=== PATIENT | female | born 1990 | race Caucasian/White ===

== ENCOUNTER 2018-11-06 00:18 | Inpatient (IN) | payer OTHER ==
[2018-11-06] MEDS ORDERED: Terbutaline 1 MG/ML SDV SUBCUT PRN (00:24)
[2018-11-06] MEDS ORDERED: Carboprost Tromethamine 250 MCG/1 ML Amp IM PRN (00:26)
[2018-11-06] MEDS ORDERED: Tranexamic Acid 1,000 MG in Sodium Chloride 0.9% 100 ML IV PRN (00:26)
[2018-11-06] MEDS ORDERED: Lidocaine 1% 50 ML MDV INJECT PRN (00:26)
[2018-11-06] MEDS ORDERED: Butorphanol 1 MG/ML SDV IVPUSH PRN (00:26)
[2018-11-06] MEDS ORDERED: Ondansetron 4 MG/2 ML SDV IV PRN (00:26)
[2018-11-06] MEDS ORDERED: Sodium Chloride 0.9% 2.5 ML Syringe FLUSH PRN (00:26)
[2018-11-06] MEDS ORDERED: Methylergonovine 0.2 MG/1 ML Amp IM PRN (00:26)
[2018-11-06] MEDS ORDERED: Misoprostol 200 MCG Tab PO PRN (00:26)
[2018-11-06] MEDS ORDERED: Sodium Chloride 0.9% 10 ML Syringe FLUSH PRN (00:26)
[2018-11-06] MEDS ORDERED: Nalbuphine 10 MG/1 ML Vial IVPUSH PRN (00:26)
[2018-11-06] MEDS ORDERED: Water For Irrigation,Sterile 1,000 ML Container IRR PRN (00:26)
[2018-11-06] MEDS ORDERED: Sodium Chloride 0.9% 10 ML SDV IV PRN (00:26)
[2018-11-06] MEDS ORDERED: Oxytocin/0.9 % Sodium Chloride 30 UNIT/500 ML BAG IV SCH ×2 (00:30)
[2018-11-06] MEDS: Lactated Ringers 1,000 ML IV SCH ×2 (01:16→06:46)
--- NOTE | 2018-11-06 07:01 | PCM.PREANE ---
Preanesthetic Assessment - Anesthesia/Transfusion/Family Hx Anesthesia History: No Prior Anesthesia Family History of Anesthesia Reaction: No Transfusion History: No Prior Transfusion(s) - Review of Systems General: No Symptoms Pulmonary: No Symptoms Cardiovascular: No Symptoms Gastrointestinal: No Symptoms Neurological: No Symptoms Other: Reports: None - Physical Assessment Height: 5 ft Weight: 90.265 kg ASA Class: 2 Mental Status: Alert & Oriented x3 Airway Class: Mallampati = 2 Dentition: Reports: Normal Dentition Thyro-Mental Finger Breadths: 3 Mouth Opening Finger Breadths: 3 ROM/Head Extension: Full Lungs: Clear to Auscultation, Normal Respiratory Effort Cardiovascular: Regular Rate, Regular Rhythm - Lab Values: Laboratory Last Values WBC 14.75 K/uL (4.0-11.0) H 11/06/18 00:46 RBC 4.65 M/uL (4.30-5.90) 11/06/18 00:46 Hgb 13.1 g/dL (12.0-16.0) 11/06/18 00:46 Hct 38.2 % (36.0-46.0) 11/06/18 00:46 MCV 82.2 fL (80.0-98.0) 05 00:46 MCH 28.2 pg (27.0-32.0) 11/06/18 00:46 MCHC 34.3 g/dL (31.0-37.0) 11/06/18 00:46 RDW Std Deviation 40.8 fl (28.0-62.0) 11/06/18 00:46 RDW Coeff of Jenn 14 % (11.0-15.0) 11/06/18 00:46 Plt Count 207 K/uL (150-400) 11/06/18 00:46 MPV 10.10 fL (7.40-12.00) 11/06/18 00:46 Blood Type O POSITIVE 11/06/18 00:46 Antibody Screen NEGATIVE 11/06/18 00:46 - Allergies Allergies/Adverse Reactions: Allergies Allergy/AdvReac Type Severity Reaction Status Date / Time No Known Allergies Allergy Verified 11/06/18 00:29 - Acknowledgements Anesthesia Type Planned: Epidural Pt an Appropriate Candidate for the Planned Anesthesia: Yes Alternatives and Risks of Anesthesia Discussed w Pt/Guardian: Yes Pt/Guardian Understands and Agrees with Anesthesia Plan: Yes PreAnesthesia Questionnaire HEENT History: Reports: None Cardiovascular History: Reports: None Respiratory History: Reports: None Gastrointestinal History: Reports: GERD Genitourinary History: Reports: None HYDRAULIC MINER History: Reports: Polycystic Ovaries, : 3 Para: 2 LMP (Approximate): Musculoskeletal History: Reports: None Neurological History: Reports: None Psychiatric History: Reports: None Endocrine/Metabolic History: Reports: Obesity/BMI 30+ Hematologic History: Reports: None Immunologic History: Reports: None Oncologic (Cancer) History: Reports: None Dermatologic History: Reports: None - Past Surgical History HEENT Surgical History: Reports: Oral Surgery, Other (See Below) - SUBSTANCE USE Smoking Status *Q: Never Smoker Second Hand Smoke Exposure: No Recreational Drug Use History: No - CURRENT (IN HOUSE) MEDS Current Meds: Current Medications Butorphanol Tartrate (Stadol) 1 mg IVPUSH Q1H PRN PRN Reason: Pain Carboprost Tromethamine (Hemabate Ds) 250 mcg IM ASDIRECTED PRN PRN Reason: Post Hemorrhage Lactated Ringer's (Ringers, Lactated) 1,000 mls @ 150 mls/hr IV ASDIRECTED SETH Last Admin: 11/06/18 06:46 Dose: 999 mls/hr Oxytocin/Sodium Chloride (Oxytocin 30 Unit/500 Ml-Ns) 30 unit in 500 mls @ 2 mls/hr IV TITRATE SETH; Protocol Last Admin: 11/06/18 01:17 Dose: 2 munits/min, 2 mls/hr Oxytocin/Sodium Chloride (Oxytocin 30 Unit/500 Ml-Ns) 30 unit in 500 mls @ 999 mls/hr IV TITRATE SETH Tranexamic Acid 1,000 mg/ (Sodium Chloride) 110 mls @ 660 mls/hr IV ONETIME PRN PRN Reason: Bleeding Lidocaine HCl (Xylocaine 1%) 50 ml INJECT ONETIME PRN PRN Reason: Laceration repair Methylergonovine Maleate (Methergine) 0.2 mg IM ASDIRECTED PRN PRN Reason: Post Hemorrhage Misoprostol (Cytotec) 200 mcg PO ONETIME PRN PRN Reason: Post Hemorrhage Nalbuphine HCl (Nubain) 10 mg IVPUSH Q1H PRN PRN Reason: Pain (severe 7-10) Ondansetron HCl (Zofran) 4 mg IV Q6H PRN PRN Reason: Nausea/Vomiting Sodium Chloride (Saline Flush) 10 ml FLUSH ASDIRECTED PRN PRN Reason: Keep Vein Open Sodium Chloride (Saline Flush) 2.5 ml FLUSH ASDIRECTED PRN PRN Reason: Keep Vein Open Sodium Chloride (Normal Saline) 10 ml IV ASDIRECTED PRN PRN Reason: IV Use Sterile Water (Sterile Water For Irrigation) 1,000 ml IRR ASDIRECTED PRN PRN Reason: delivery Terbutaline Sulfate (Brethine) 0.25 mg SUBCUT ASDIRECTED PRN PRN Reason: Tacysystole
[2018-11-06] MEDS ORDERED: Ibuprofen 400 MG Tab PO PRN (08:51)
[2018-11-06] MEDS ORDERED: Docusate Sodium 100 MG Cap PO PRN (08:51)
[2018-11-06] MEDS ORDERED: Benzocaine/Menthol 20%-0.5% Spray 78 GM Cannister TOP PRN (08:51)
[2018-11-06] MEDS ORDERED: Lanolin 100% Cream 7 GM Tube TOP PRN (08:51)
[2018-11-06] MEDS ORDERED: Witch Hazel Medicated Pads 40/Jar TOP PRN (08:51)
[2018-11-06] MEDS ORDERED: Acetaminophen 500 MG Tab PO PRN ×2 (08:51)
[2018-11-06] MEDS ORDERED: oxyCODONE 5 MG Tab PO PRN (08:51)
[2018-11-06] MEDS ORDERED: Bisacodyl 10 MG Supp RECTAL PRN (08:51)
--- NOTE | 2018-11-06 08:57 | PCM.DEL ---
L & D Note - General Info Date of Service: 11/06/18 Mother's Due Date: 11/09/18 - Delivery Note Labor: Spontaneous Delivery Outcome: Livebirth Presentation: Left Occiput Anterior (PAULINA) Nuchal Cord: None Anesthesia Type: Epidural Amniotic Fluid Description: Clear Laceration: 2nd Degree Suture type: Other (monocryl) Suture size: 3-0 Placenta: Intact Cord: 3 Vessels Estimated Blood Loss: 300 Resuscitation Needed: No Score 1 min: 8 Score 5 min: 9 Delivery Comments (Free Text/Narrative):: Live female delivered at 811am , 8/9 weight 3270g - General Info Date of Service: 11/06/18 - Patient Data Weight - Most Recent: 90.265 kg Lab Results Last 24 Hours: Laboratory Results - last 24 hr 11/06/18 11/06/18 Range/Units 00:46 00:46 WBC 14.75 H (4.0-11.0) K/uL RBC 4.65 (4.30-5.90) M/uL Hgb 13.1 (12.0-16.0) g/dL Hct 38.2 (36.0-46.0) % MCV 82.2 (80.0-98.0) fL MCH 28.2 (27.0-32.0) pg MCHC 34.3 (31.0-37.0) g/dL RDW Std Deviation 40.8 (28.0-62.0) fl RDW Coeff of Jenn 14 (11.0-15.0) % Plt Count 207 (150-400) K/uL MPV 10.10 (7.40-12.00) fL Blood Type O POSITIVE Antibody Screen NEGATIVE Med Orders - Current: Current Medications Carboprost Tromethamine (Hemabate Ds) 250 mcg IM ASDIRECTED PRN PRN Reason: Post Hemorrhage Lactated Ringer's (Ringers, Lactated) 1,000 mls @ 150 mls/hr IV ASDIRECTED SETH Last Admin: 11/06/18 06:46 Dose: 999 mls/hr Oxytocin/Sodium Chloride (Oxytocin 30 Unit/500 Ml-Ns) 30 unit in 500 mls @ 2 mls/hr IV TITRATE SETH; Protocol Last Admin: 11/06/18 01:17 Dose: 2 munits/min, 2 mls/hr Oxytocin/Sodium Chloride (Oxytocin 30 Unit/500 Ml-Ns) 30 unit in 500 mls @ 999 mls/hr IV TITRATE SETH Tranexamic Acid 1,000 mg/ (Sodium Chloride) 110 mls @ 660 mls/hr IV ONETIME PRN PRN Reason: Bleeding Lidocaine HCl (Xylocaine 1%) 50 ml INJECT ONETIME PRN PRN Reason: Laceration repair Methylergonovine Maleate (Methergine) 0.2 mg IM ASDIRECTED PRN PRN Reason: Post Hemorrhage Misoprostol (Cytotec) 200 mcg PO ONETIME PRN PRN Reason: Post Hemorrhage Ondansetron HCl (Zofran) 4 mg IV Q6H PRN PRN Reason: Nausea/Vomiting Sodium Chloride (Saline Flush) 10 ml FLUSH ASDIRECTED PRN PRN Reason: Keep Vein Open Sodium Chloride (Saline Flush) 2.5 ml FLUSH ASDIRECTED PRN PRN Reason: Keep Vein Open Sodium Chloride (Normal Saline) 10 ml IV ASDIRECTED PRN PRN Reason: IV Use Sterile Water (Sterile Water For Irrigation) 1,000 ml IRR ASDIRECTED PRN PRN Reason: delivery Terbutaline Sulfate (Brethine) 0.25 mg SUBCUT ASDIRECTED PRN PRN Reason: Tacysystole Discontinued Medications Butorphanol Tartrate (Stadol) 1 mg IVPUSH Q1H PRN PRN Reason: Pain Fentanyl/Bupivacaine HCl ([id number] 2 Mcg/Ml-0.125%) Confirm Administered Dose 100 mls @ as directed .ROUTE .STK-MED ONE Stop: 11/06/18 07:03 Nalbuphine HCl (Nubain) 10 mg IVPUSH Q1H PRN PRN Reason: Pain (severe 7-10) - Problem List & Annotations (1) Vaginal delivery SNOMED Code(s): 787235721 Code(s): O80 - ENCOUNTER FOR FULL-TERM UNCOMPLICATED DELIVERY Status: Acute Current Visit: No - Problem List Review Problem List Initiated/Reviewed/Updated: Yes - My Orders Last 24 Hours: My Active Orders 11/06/18 00:24 Bedrest Bathroom Privileges [RC] ASDIRECTED Communication Order [RC] ASDIRECTED Communication Order [RC] ASDIRECTED Notify Provider [RC] PRN Oxygen Therapy [RC] ASDIRECTED Vital Signs [RC] PER UNIT ROUTINE Terbutaline [Brethine] 0.25 mg SUBCUT ASDIRECTED PRN 11/06/18 00:26 Patient Status [ADT] Routine May Shower [RC] ASDIRECTED Notify Provider [RC] PRN Up ad Reina [RC] ASDIRECTED Vital Signs [RC] PER UNIT ROUTINE Carboprost Tromethamine [Hemabate DS] 250 mcg IM ASDIRECTED PRN Lidocaine 1% [Xylocaine 1%] 50 ml INJECT ONETIME PRN Methylergonovine [Methergine] 0.2 mg IM ASDIRECTED PRN Ondansetron [Zofran] 4 mg IV Q6H PRN Sodium Chloride 0.9% [Normal Saline] 10 ml IV ASDIRECTED PRN Sodium Chloride 0.9% [Saline Flush] 10 ml FLUSH ASDIRECTED PRN Sodium Chloride 0.9% [Saline Flush] 2.5 ml FLUSH ASDIRECTED PRN Tranexamic Acid [Cyklokapron] 1,000 mg Sodium Chloride 0.9% [Normal Saline] 100 ml IV ONETIME Water For Irrigation,Sterile [Sterile Water for Irrigation] 1,000 ml IRR ASDIRECTED PRN miSOPROStol [Cytotec] 200 mcg PO ONETIME PRN Peripheral IV Insertion Adult [OM.PC] Routine 11/06/18 00:30 Lactated Ringers [Ringers, Lactated] 1,000 ml IV ASDIRECTED Oxytocin/0.9 % Sodium Chloride [Oxytocin 30 Unit/500 ML-NS] 30 unit in 500 ml IV TITRATE Oxytocin/0.9 % Sodium Chloride [Oxytocin 30 Unit/500 ML-NS] 30 unit in 500 ml IV TITRATE Medication Administration Instruction [OM.PC] Q3H 11/06/18 08:51 May Shower [RC] ASDIRECTED Up ad Reina [RC] ASDIRECTED Vital Signs [RC] PER UNIT ROUTINE Acetaminophen [Tylenol Extra Strength] 1,000 mg PO Q4H PRN Acetaminophen [Tylenol Extra Strength] 500 mg PO Q4H PRN Benzocaine/Menthol [Dermoplast Pain Relief 20%-0.5% [place]] 78 gm TOP ASDIRECTED PRN Bisacodyl [Dulcolax] 10 mg RECTAL ONETIME PRN Docusate Sodium [Colace] 100 mg PO BID PRN Ibuprofen [Motrin] 400 mg PO Q4H PRN Ibuprofen [Motrin] 800 mg PO Q6H PRN Lanolin [Lansinoh HPA] See Dose Instructions TOP ASDIRECTED PRN Witalexandro Magalys [Tucks] 1 pad TOP ASDIRECTED PRN oxyCODONE 5 mg PO Q2H PRN Assess Lochia [WOMSER] Per Unit Routine Assess Uterine Involution [WOMSER] Per Unit Routine Peripheral IV Discontinue [OM.PC] Routine 11/07/18 05:11 HEMOGLOBIN/HEMATOCRIT,HH [HEME] Timed
[2018-11-06] MEDS: Ibuprofen 800 MG Tab PO PRN (12:52)
[2018-11-07] MEDS: Ibuprofen 800 MG Tab PO PRN (05:52)
[2018-11-07 07:44] VITALS: BP 113/76
--- NOTE | 2018-11-07 09:25 | PCM48HPAN ---
Post Anesthesia Note - EVALUATION WITHIN 48HRS OF ANESTHETIC Vital Signs in Normal Range: Yes Patient Participated in Evaluation: Yes Respiratory Function Stable: Yes Airway Patent: Yes Cardiovascular Function Stable: Yes Hydration Status Stable: Yes Pain Control Satisfactory: Yes Nausea and Vomiting Control Satisfactory: Yes Mental Status Recovered: Yes Resp Rate: 17 - COMMENTS/OBSERVATIONS Free Text/Narrative:: Patient up walking around in room. No complaints or concerns related to anesthesia.
--- NOTE | 2018-11-07 10:13 | PCM.PNPP ---
- General Info Date of Service: 11/07/18 Functional Status: Reports: Pain Controlled, Tolerating Diet, Ambulating, Urinating - Review of Systems General: Reports: No Symptoms HEENT: Reports: No Symptoms Pulmonary: Reports: No Symptoms Cardiovascular: Reports: No Symptoms Gastrointestinal: Reports: No Symptoms Genitourinary: Reports: No Symptoms Musculoskeletal: Reports: No Symptoms Skin: Reports: No Symptoms Neurological: Reports: No Symptoms Psychiatric: Reports: No Symptoms - General Info Date of Service: 11/07/18 - Patient Data Vital Signs - Most Recent: Last Vital Signs Temp 36.3 C 11/07/18 07:30 Pulse 70 11/07/18 07:30 Resp 17 11/07/18 09:25 BP 113/76 11/07/18 07:30 Pulse Ox 97 11/07/18 07:30 Weight - Most Recent: 90.265 kg Lab Results - Last 24 Hours: Laboratory Results - last 24 hr 11/07/18 Range/Units 05:46 Hgb 12.9 (12.0-16.0) g/dL Hct 38.7 (36.0-46.0) % Med Orders - Current: Current Medications Acetaminophen (Tylenol Extra Strength) 500 mg PO Q4H PRN PRN Reason: Pain Acetaminophen (Tylenol Extra Strength) 1,000 mg PO Q4H PRN PRN Reason: Pain Last Admin: 11/07/18 05:52 Dose: 1,000 mg Benzocaine/Menthol (Dermoplast Pain Relief 20%-0.5% [place]) 78 gm TOP ASDIRECTED PRN PRN Reason: Perineal Comfort Measure Bisacodyl (Dulcolax) 10 mg RECTAL ONETIME PRN PRN Reason: Constipation Carboprost Tromethamine (Hemabate Ds) 250 mcg IM ASDIRECTED PRN PRN Reason: Post Hemorrhage Docusate Sodium (Colace) 100 mg PO BID PRN PRN Reason: Constipation Emollient Ointment (Lansinoh Hpa) 0 gm TOP ASDIRECTED PRN PRN Reason: Sore Nipples Last Admin: 11/06/18 12:52 Dose: 1 tube Lactated Ringer's (Ringers, Lactated) 1,000 mls @ 150 mls/hr IV ASDIRECTED SETH Last Admin: 11/06/18 06:46 Dose: 999 mls/hr Oxytocin/Sodium Chloride (Oxytocin 30 Unit/500 Ml-Ns) 30 unit in 500 mls @ 2 mls/hr IV TITRATE SETH; Protocol Last Titration: 11/06/18 08:13 Dose: 500 munits/min, 500 mls/hr Oxytocin/Sodium Chloride (Oxytocin 30 Unit/500 Ml-Ns) 30 unit in 500 mls @ 999 mls/hr IV TITRATE SETH Tranexamic Acid 1,000 mg/ (Sodium Chloride) 110 mls @ 660 mls/hr IV ONETIME PRN PRN Reason: Bleeding Ibuprofen (Motrin) 400 mg PO Q4H PRN PRN Reason: Pain Ibuprofen (Motrin) 800 mg PO Q6H PRN PRN Reason: Pain Last Admin: 11/07/18 05:52 Dose: 800 mg Lidocaine HCl (Xylocaine 1%) 50 ml INJECT ONETIME PRN PRN Reason: Laceration repair Methylergonovine Maleate (Methergine) 0.2 mg IM ASDIRECTED PRN PRN Reason: Post Hemorrhage Misoprostol (Cytotec) 200 mcg PO ONETIME PRN PRN Reason: Post Hemorrhage Ondansetron HCl (Zofran) 4 mg IV Q6H PRN PRN Reason: Nausea/Vomiting Oxycodone HCl (Oxycodone) 5 mg PO Q2H PRN PRN Reason: Pain Sodium Chloride (Saline Flush) 10 ml FLUSH ASDIRECTED PRN PRN Reason: Keep Vein Open Sodium Chloride (Saline Flush) 2.5 ml FLUSH ASDIRECTED PRN PRN Reason: Keep Vein Open Sodium Chloride (Normal Saline) 10 ml IV ASDIRECTED PRN PRN Reason: IV Use Sterile Water (Sterile Water For Irrigation) 1,000 ml IRR ASDIRECTED PRN PRN Reason: delivery Terbutaline Sulfate (Brethine) 0.25 mg SUBCUT ASDIRECTED PRN PRN Reason: Tacysystole Witch Magalys (Tucks) 1 pad TOP ASDIRECTED PRN PRN Reason: comfort care Discontinued Medications Butorphanol Tartrate (Stadol) 1 mg IVPUSH Q1H PRN PRN Reason: Pain Fentanyl/Bupivacaine HCl (Gbqswhel-Nlzqv-Hk 2 Mcg/Ml-0.125%) Confirm Administered Dose 100 mls @ as directed .ROUTE .ST-MED ONE Stop: 11/06/18 07:03 Last Admin: 11/06/18 15:00 Dose: Not Given Nalbuphine HCl (Nubain) 10 mg IVPUSH Q1H PRN PRN Reason: Pain (severe 7-10) - Infant Interaction Disposition, : [place] in Room with Family Infant Interaction: Holding Infant Feeding: Breastfed ; Nursed Well Support Person: - Recovery Exam Fundal Tone: Firm Fundal Level: 1 Fingerbreadths Below Umbilicus Fundal Placement: Midline Lochia Amount: Scant Lochia Color: Rubra/Red Perineum Description: Other (see below) Other Perinuem Description: 2nd degree laceration Episiotomy/Laceration: Approximated - Exam General: Alert, Oriented HEENT: Pupils Equal Neck: Supple Lungs: Clear to Auscultation, Normal Respiratory Effort Cardiovascular: Regular Rate, Regular Rhythm GI/Abdominal Exam: Soft, Non-Tender, No Organomegaly, No Distention Extremities: Normal Inspection, Non-Tender, No Pedal Edema Skin: Warm, Dry, Intact Neurological: No New Focal Deficit Psy/Mental Status: Alert, Normal Affect, Normal Mood - Problem List & Annotations (1) Vaginal delivery SNOMED Code(s): 718303910 Code(s): O80 - ENCOUNTER FOR FULL-TERM UNCOMPLICATED DELIVERY Status: Acute Current Visit: No - Problem List Review Problem List Initiated/Reviewed/Updated: Yes - Assessment Assessment:: PPD# 1 after stable, minimal lochia, tolerating diet, denies pain would like to go home today. - Plan Plan:: Dismiss to home, discharge instructions reviewed.
--- NOTE | 2018-11-07 13:23 | OR ---
SURGEON: SHUN GILES DATE OF PROCEDURE: 11/06/2018 PREOPERATIVE DIAGNOSIS: A 28-year-old, G3, P2, at 39-4/7 weeks admitted for induction of labor for history of precipitous labor. POSTOPERATIVE DIAGNOSIS: A 28-year-old, G3, P2, at 39-4/7 weeks admitted for induction of labor for history of precipitous labor. PROCEDURE: Normal spontaneous vaginal delivery and repair of second-degree vaginal laceration. ESTIMATED BLOOD LOSS: 300. IV FLUIDS: Pitocin running. FINDINGS: Live female delivered at 8:11 a.m. score was 8 and 9. Weight is 3200 g. BRIEF HISTORY: She is a 28-year-old G3, P 2-0-0-2, 39-4/7, who has a history of precipitous labor, so she desired an induction of labor. Due to distance and history of precipitous labor, the patient's induction of labor was started with Pitocin. She was initially 3, 50, -3. After Pitocin, she became about 4 to 5 cm dilated. She was ruptured, and after rupture within an hour, the patient was fully dilated PROCEDURE With patient being fully dilated. She delivered the head, subsequently by the anterior and posterior shoulder, then the body of the was delivered. Delayed cord clamping was observed. The cord was clamped and cut. Placenta was then delivered via controlled cord traction. The perineum was inspected, there was noted to have a second-degree laceration which was repaired. The uterus was massaged. Hemostasis was noted. All instrument and pad counts were correct x2.The patient tolerated the procedure well and was left in Labor and Delivery suite in stable condition. DHRUV ANDERSON /[id number] SHERRILL
== END 2018-11-07 12:34 | disposition home or self-care (01) | DRG 807 ==
LOC: MW.OBCHECK 00:18 → MW.OB 00:26 → OBSVTOIN 08:11 → MW.OB 16:21
PROVIDERS: ADMIT Obstetrics & Gynecology; ATTEND Obstetrics & Gynecology
PROC: 0KQM0ZZ Repair Perineum Muscle, Open Approach (ICD-10-PCS; principal; 2018-11-06)
PROC: 10E0XZZ Delivery of Products of Conception, External Approach (ICD-10-PCS; 2018-11-06)
PROC: 3E033VJ Introduction of Other Hormone into Peripheral Vein, Percutaneous Approach (ICD-10-PCS; 2018-11-06)
PROC: 3E0R3BZ Introduction of Anesthetic Agent into Spinal Canal, Percutaneous Approach (ICD-10-PCS; 2018-11-06)
PROC: 00HU33Z Insertion of Infusion Device into Spinal Canal, Percutaneous Approach (ICD-10-PCS; 2018-11-06)
DX: O70.1 Second degree perineal laceration during delivery (principal); Z37.0 Single live birth; Z3A.39 39 weeks gestation of pregnancy
CPT/HCPCS: 01967; 36415; 59025; 59409; 85014; 85018; 85027; 86850; 86900; 86901; A9270-GY; J2590; J7120

== ENCOUNTER 2023-02-17 09:33 | Day surgery (SDC) | payer BC ==
[~2023-02-17 09:33] MED LIST: Albuterol 0.083% 2.5 MG/3 ML Neb Soln NEB PRN; HYDROmorphone 1 MG/ML Syringe IVPUSH PRN; Lactated Ringers 1,000 ML IV SCH; Metoclopramide 10 MG/2 ML SDV IVPUSH PRN; Morphine 2 MG/ML SYRINGE IVPUSH PRN; Naloxone 0.4 MG/ML SDV IVPUSH PRN; Ondansetron 4 MG/2 ML SDV IVPUSH PRN; droPERidol 5 MG/2 ML SDV IVPUSH PRN; fentaNYL 50 MCG/ML SDV IVPUSH PRN
[2023-02-17] MEDS ORDERED: Bupivacaine 0.5% 30 ML SDV ONE (10:01)
[2023-02-17] MEDS ORDERED: Lidocaine 1% 20 ML MDV ONE (10:01)
[2023-02-17] MEDS ORDERED: Ondansetron 4 MG/2 ML SDV ONE ×2 (10:11→10:45)
[2023-02-17] MEDS ORDERED: Magnesium Sulfate (4.06 MEQ/ML) 5 GM/10 ML SDV ONE (10:11)
[2023-02-17] MEDS ORDERED: Scopolamine 1.5 MG Transdermal Patch ONE (10:11)
[2023-02-17] MEDS ORDERED: Metoclopramide 10 MG/2 ML SDV ONE (10:45)
[2023-02-17] MEDS ORDERED: Rocuronium Bromide 50 MG/5 ML Syringe ONE (10:45)
[2023-02-17] MEDS ORDERED: Dexamethasone 4 MG/ML 5 ML MDV ONE (10:45)
[2023-02-17] MEDS ORDERED: Ketorolac 30 MG/ML SDV ONE (10:45)
[2023-02-17] MEDS ORDERED: Sugammadex Sodium 200 MG/2 ML VIAL ONE (10:45)
[2023-02-17] MEDS ORDERED: propofoL 100 ML ONE (10:46)
[2023-02-17] MEDS ORDERED: fentaNYL 100 MCG/2 ML SDV ONE (10:46)
[2023-02-17] MEDS ORDERED: Lidocaine 2% 100 MG/5 ML Syringe ONE (10:47)
[2023-02-17] MEDS ORDERED: Morphine 10 MG/ML SDV ONE (11:42)
[2023-02-17] MEDS ORDERED: Acetaminophen/HYDROcodone 325-5 MG Tab PO PRN (12:58)
[2023-02-17] MEDS ORDERED: Lactated Ringers 1,000 ML IV SCH (13:00)
[2023-02-17 13:29] VITALS: BP 104/70; PULSE 76
== END 2023-02-17 13:35 | disposition home or self-care (01) ==
LOC: MW.SDS 09:33
PROVIDERS: ATTEND Surgery
DX: D17.1 Benign lipomatous neoplasm of skin and subcutaneous tissue of trunk (principal); G43.909 Migraine, unspecified, not intractable, without status migrainosus; F32.A Depression, unspecified; E66.9 Obesity, unspecified; E28.2 Polycystic ovarian syndrome; J45.990 Exercise induced bronchospasm; Z68.35 Body mass index [BMI] 35.0-35.9, adult; Z79.899 Other long term (current) drug therapy
CPT/HCPCS: 27043; 81025; A9270; J0131; J1100; J1885; J2270; J2405; J2704; J2765; J3010; J3475; J3490; J7120; 00300